=== PATIENT | male | born 1930 | race African-American/Black ===

== ENCOUNTER → 2019-03-30 | Outpatient (CLI) | payer OTHER | LOC: RAD 10:06 → SPEECH 10:06 | DX: R13.12 Dysphagia, oropharyngeal phase (principal); E55.9 Vitamin D deficiency, unspecified; I10 Essential (primary) hypertension; K21.9 Gastro-esophageal reflux disease without esophagitis; R29.3 Abnormal posture; F03.91 Unspecified dementia, unspecified severity, with behavioral disturbance; F41.9 Anxiety disorder, unspecified ==